=== PATIENT | female | born 1965 | race Caucasian/White ===

== ENCOUNTER 2021-09-23 13:04 | Inpatient (IN) ==
[2021-09-23] MEDS ORDERED: HYDROmorphone 1 MG/1 ML SYRINGE ONE (13:24)
[2021-09-23] MEDS ORDERED: ONDANSETRON 4 MG/2 ML VIAL ONE (13:24)
[2021-09-23] MEDS ORDERED: ONDANSETRON 4 MG/2 ML VIAL IV STA (13:29)
[2021-09-23] MEDS ORDERED: HYDROmorphone 1 MG/1 ML SYRINGE IV STA (13:29)
[2021-09-23] MEDS ORDERED: MAGNESIUM HYDROXIDE SUSP 30 ML UDCUP PO PRN (13:45)
[2021-09-23] MEDS ORDERED: ONDANSETRON 4 MG/2 ML VIAL IV PRN (13:45)
[2021-09-23 14:12] LABS: Basophils % 0.4 % (0.0-0.8); Eosinophils # 0.1 10*3/uL (0.0-0.87); Eosinophils % 1.1 % (0.00-10.9); Hematocrit 33.3 VOL% (35.7-47.0); Hemoglobin 10.9 GM/DL (12.0-16.0); Immature Granulocytes % 0.5 %; Immature Granulocytes Absolute 0.05 #; Lymphocytes # 2.1 10*3/uL (1.4-4.0); Lymphocytes % 21.3 % (21.3-54.2); Mean Corpuscular HGB Conc 32.7 GM/DL (32-36); Mean Corpuscular Volume 92.5 FL (87-102); Mean Platelet Volume 10.5 FL (9.6-12.0); Monocytes # 0.6 10*3/uL (0.11-0.8); Monocytes % 6.5 % (1.7-12.7); Neutrophils % 70.2 % (38.7-73.9); Platelet Count 254 T/CUMM (130-400); Red Cell Distribution Width 12.7 % (9.3-17.3); White Blood Count 9.7 T/CUMM (4-12)
[2021-09-23] MEDS ORDERED: fentaNYL 100 MCG/2 ML VIAL IV ONE (14:12)
[2021-09-23 14:24] LABS: PT Patient Result 10.9 SECS (10.5-12.0)
[2021-09-23 14:52] LABS: Albumin 3.5 G/DL (3.4-5.0); Bilirubin,Total 0.8 MG/DL (0.20-1.00); Calcium 8.8 MG/DL (8.5-10.1); Osmolality,Calculated 277.5 MOS/KG (273-304); Potassium 3.6 MMOL/L (3.5-5.1); Total Protein 6.6 G/DL (6.4-8.2)
[2021-09-23] MEDS: LACTATED RINGERS 1,000 ML IV SCH (15:26)
[2021-09-24] MEDS ORDERED: ROCURONIUM 50 MG/5 ML VIAL IV ONE ×2 (06:37→13:15)
[2021-09-24] MEDS ORDERED: propofoL 200 MG/20 ML VIAL IV ONE ×2 (06:37→13:15)
[2021-09-24] MEDS ORDERED: fentaNYL 100 MCG/2 ML VIAL ONE (06:37)
[2021-09-24] MEDS ORDERED: ONDANSETRON 4 MG/2 ML VIAL ONE ×2 (06:37→13:15)
[2021-09-24] MEDS ORDERED: LIDOCAINE 2% 5 ML VIAL ONE ×2 (06:37→13:15)
[2021-09-24] MEDS: PANTOPRAZOLE 40 MG TABLET PO SCH (08:18)
[2021-09-24] MEDS: LACTATED RINGERS 1,000 ML IV SCH (10:05)
[2021-09-24] MEDS ORDERED: DEXAMETHASONE 4 MG/1 ML VIAL ONE ×2 (11:12→13:15)
[2021-09-24] MEDS ORDERED: ROPIVACAINE 0.5% 30 ML VIAL ONE (11:12)
[2021-09-24] MEDS ORDERED: LIDOCAINE 1% 5 ML VIAL ONE (11:12)
[2021-09-24] MEDS ORDERED: MIDAZOLAM 2 MG/2 ML VIAL ONE (11:19)
[2021-09-24] MEDS ORDERED: ceFAZolin 1,000 MG VIAL ONE (11:47)
[2021-09-24] MEDS ORDERED: LACTATED RINGERS 1,000 ML IV ONE ×2 (13:14→14:02)
[2021-09-24] MEDS ORDERED: DEXAMETHASONE 20 MG/5 ML VIAL ONE (13:15)
[2021-09-24] MEDS ORDERED: DESFLURANE 1 UNIT/15 MINUTE INH ONE ×2 (13:15→14:45)
[2021-09-24] MEDS ORDERED: NEOSTIGMINE 10 MG/10 ML VIAL ONE (14:06)
[2021-09-24] MEDS ORDERED: GLYCOPYRROLATE 0.4 MG/2 ML VIAL ONE (14:06)
[2021-09-24] MEDS ORDERED: ONDANSETRON 4 MG/2 ML VIAL IV PRN (15:17)
[2021-09-24] MEDS: HYDROmorphone 1 MG/1 ML SYRINGE IV PRN ×3 (15:20→21:38)
[2021-09-25] MEDS: LACTATED RINGERS 1,000 ML IV SCH (05:20)
[2021-09-25] MEDS: HYDROmorphone 1 MG/1 ML SYRINGE IV PRN (07:30)
[2021-09-25] MEDS: PANTOPRAZOLE 40 MG TABLET PO SCH (08:41)
[2021-09-25 12:12] VITALS: BP 98/59
== END 2021-09-25 16:30 | disposition home or self-care (01) | DRG 494 ==
LOC: EDBD → EDUNIT# → N.EDINP 13:04 → N.ED 13:04 → N.3E 14:13
PROVIDERS: ADMIT Orthopaedic Surgery; ATTEND Orthopaedic Surgery